=== PATIENT | female | born 1950 | race Caucasian/White ===

== ENCOUNTER 2018-07-17 07:24 | Emergency (ER) | payer OTHER ==
[2018-07-17] MEDS: ACETAMINOPHEN 500 MG TAB PO (08:36)
== END 2018-07-17 10:10 | disposition home or self-care (01) ==
LOC: FTE 07:24
DX: M54.5 Low back pain (principal); R07.89 Other chest pain; R07.81 Pleurodynia
CPT/HCPCS: 71045; 71100; 72100; 99284-25